=== PATIENT | female | born 1965 | race Caucasian/White ===

== ENCOUNTER 2019-01-02 18:28 | Emergency (ER) | payer SELFPAY ==
[2019-01-02 18:46] VITALS: O2SAT 100
[2019-01-02] MEDS ORDERED: Sodium Chloride 0.9% 1,000 ML IV ONE (20:39)
--- NOTE | 2019-01-02 20:45 | C.PDOC ---
History Of Present Illness 54 y/o female, with history of hypertension, comes in to ED for an evaluation. Patient reports having fever, generalized weakness, bodyaches, mild sore throat, and cough. Patient was on a layover traveling from [place] to [place]. Denies SOB, chest pain, nausea, vomiting, abdominal pain, or other complaints. Time Seen by Provider: 01/02/19 20:33 Chief Complaint (Nursing): Weakness/Neurological Deficit History Per: Patient History/Exam Limitations: no limitations Onset/Duration Of Symptoms: Days Current Symptoms Are (Timing): Still Present Past Medical History Reviewed: Historical Data, Nursing Documentation, Vital Signs Vital Signs: Last Vital Signs Temp 100.8 F H 01/02/19 18:41 Pulse 107 H 01/02/19 18:41 Resp 18 01/02/19 18:41 BP 127/89 01/02/19 18:41 Pulse Ox 100 01/02/19 18:41 Primary Care Provider: FAMILY PROVIDER,NO - Medical History PMH: HTN Surgical History: Tonsillectomy Family History: States: No Known Family Hx - Social History Hx Alcohol Use: No Hx Substance Use: No Review Of Systems Except As Marked, All Systems Reviewed And Found Negative. Constitutional: Positive for: Fever, Weakness, Other (bodyache). Negative for: Chills ENT: Positive for: Throat Pain (sore throat) Cardiovascular: Negative for: Chest Pain Respiratory: Positive for: Cough. Negative for: Shortness of Breath Gastrointestinal: Negative for: Nausea, Vomiting, Abdominal Pain Neurological: Negative for: Headache, Dizziness Physical Exam - Physical Exam Appears: Non-toxic, No Acute Distress Skin: Warm, Dry Head: Atraumatic, Normacephalic Eye(s): bilateral: PERRL Oral Mucosa: Moist Throat: Erythema (mild pharynx erythema), No Exudate Neck: Supple Cardiovascular: Rhythm Regular, No Murmur Respiratory: Normal Breath Sounds, No Rales, No Rhonchi, No Wheezing Gastrointestinal/Abdominal: Soft, No Tenderness Extremity: Bilateral: Atraumatic, Normal ROM Neurological/Psych: Oriented x3, Normal Speech ED Course And Treatment - Laboratory Results Result Diagrams: 01/02/19 20:56 01/02/19 20:56 O2 Sat by Pulse Oximetry: 100 (RA) Pulse Ox Interpretation: Normal Medical Decision Making Medical Decision Making: suspect viral syndromne will hydrate check labs image and reasses Plan: --Labs --Urine preg --UA --IV fluids --Tylenol cxr neg as read by me. labs mild leukocytosis. fever tachycardia resolved. pti nad on phone. suspect viral syndrome. nomral vitals neuor intact nomenginmus abd soft no ttp. stable for d.c mild anemia, pt reporst heavy vb. Disposition - Disposition Referrals: [facility] [Outside] [facility] [Outside] Disposition: HOME/ ROUTINE Disposition Time: 07:00 Condition: STABLE Additional Instructions: return to any er with worseinng. please follow up in clinc. Prescriptions: Acetaminophen [Tylenol] 650 mg PO Q4 PRN #20 capsule PRN Reason: Pain, Mild (1-3) Instructions: Viral Syndrome (DC) Forms: [employer] (Yakut) - Clinical Impression Clinical Impression: Viral syndrome - Scribe Statement The provider has reviewed the documentation as recorded by the Natali Walters Provider Attestation: All medical record entries made by the Adrianibmk were at my direction and personall y dictated by me. I have reviewed the chart and agree that the record accurately reflects my personal performance of the history, physical exam, medical decision making, and the department course for this patient. I have also personally directed, reviewed, and agree with the discharge instructions and disposition.
[2019-01-02 21:01] LABS: BASO # 0.1 K/uL (0.0-0.2); BASO % 0.6 % (0.0-2.0); HEMOGLOBIN 10.2 g/dL (11.0-16.0); LYMPH # 2.4 K/uL (1.0-4.3); LYMPH % 17.3 % (20.0-40.0); MEAN CELL VOLUME 67.8 fL (81.0-99.0); MEAN CORPUSCULAR HEMOGLOBIN 21.3 pg (27.0-31.0); MEAN CORPUSCULAR HGB CONC 31.4 g/dL (33.0-37.0); MEAN PLATELET VOLUME 7.8 fL (7.2-11.7); MONO # 0.6 K/uL (0.0-0.8); NEUT # 10.7 K/uL (1.8-7.0); NEUT % 78.1 % (50.0-75.0); RBC 4.77 Mil/uL (3.80-5.20); RED CELL DISTRIBUTION WIDTH 18.9 % (11.5-14.5); WHITE BLOOD COUNT 13.7 K/uL (4.8-10.8)
[2019-01-02 21:13] LABS: INR 1.2; PROTHROMBIN TIME 13.5 SECONDS (9.7-12.2)
[2019-01-02 21:16] LABS: ALB/GLOB RATIO 1.1 (1.0-2.1); ALBUMIN 4.6 g/dL (3.5-5.0); ALT/SGPT 17 U/L (9-52); AST/SGOT 29 U/L (14-36); BLOOD UREA NITROGEN 11 mg/dL (7-17); CALCIUM 9.3 mg/dl (8.6-10.4); GFR NON-AFRICAN AMERICAN > 60
[2019-01-02 22:34] LABS: SQUAMOUS EPITHIAL 5 /hpf (0-5); URINE BACTERIA OCC (<OCC); URINE BILIRUBIN NEGATIVE (NEGATIVE); URINE BLOOD 3+ (NEGATIVE); URINE CLARITY Hazy (Clear); URINE COLOR Yellow (YELLOW); URINE GLUCOSE (UA) NORMAL (Normal); URINE LEUKOCYTE ESTERASE NEG Leu/uL (Negative); URINE PROTEIN 1+ mg/dL (NEGATIVE); URINE UROBILINOGEN NORMAL mg/dL (0.2-1.0)
[2019-01-02 22:46] LABS: HCG,QUALITATIVE URINE NEGATIVE (NEGATIVE)
[2019-01-02 22:49] LABS: INFLUENZA A B NEGATIVE FOR FLU A/B (NEGATIVE)
[2019-01-03 00:23] VITALS: BP 142/87; PULSE 87; RESP 20; TEMP 98.7
--- NOTE | 2019-01-03 11:54 | RAD ---
HISTORY: fever COMPARISON: None available. TECHNIQUE: Chest PA and lateral, 2 views FINDINGS: LUNGS: No focal consolidation. Please note that chest x-ray has limited sensitivity for the detection of pulmonary masses. PLEURA: No significant pleural effusion identified. No definite pneumothorax . CARDIOVASCULAR: The cardiomediastinal silhouette appears within normal limits of size. No atherosclerotic calcification present. OSSEOUS STRUCTURES: Mild degenerative changes. VISUALIZED UPPER ABDOMEN: Unremarkable. OTHER FINDINGS: None. IMPRESSION: No focal consolidation.
--- NOTE | 2019-01-05 03:25 | CARD ---
APPROVED REPORT Date of service: 01/02/2019 EKG Measurement Heart [id number] <Conclusion> Sinus tachycardia Otherwise normal ECG
== END 2019-01-03 00:23 | disposition home or self-care (01) ==
LOC: C.ER 18:28
DX: B34.9 Viral infection, unspecified (principal); I10 Essential (primary) hypertension
CPT/HCPCS: 71046; 80053; 81001; 82948; 84703; 85025; 85610; 85730; 87070; 87430; 87804; 96360; 99284; J7030

== ENCOUNTER 2019-01-03 21:16 | Emergency (ER) | payer SELFPAY ==
[2019-01-03 21:43] VITALS: BP 130/68; PULSE 109; RESP 20; TEMP 98.9; O2SAT 100
[2019-01-03] MEDS ORDERED: Sodium Chloride 0.9% 1,000 ML IV ONE (21:57)
--- NOTE | 2019-01-03 21:57 | C.PDOC ---
History Of Present Illness Patient c/o increasing abdominal pain. Patient was seen yesterday in the ED for same. Patient reports recent travel from [place]. Patient had negative work up yesterday however still c/o pain. Patient saw a APPLIED BEHAVIOR SPECIALIST today and was told she had pelvic inflammation. Patient did not have an US done. Patient denies fever, chills, nausea, vomit, diarrhea. Time Seen by Provider: 01/03/19 21:56 Chief Complaint (Nursing): Abdominal Pain History Per: Patient History/Exam Limitations: no limitations Onset/Duration Of Symptoms: Days Current Symptoms Are (Timing): Worse Location Of Pain/Discomfort: RLQ Quality Of Discomfort: "Pain" Associated Symptoms: denies: Nausea, Vomiting, Diarrhea, Urinary Symptoms Recent travel outside of the [place]: Yes ([place]) Additional History Per: Patient Abnormal Vaginal Bleeding: No Past Medical History Reviewed: Historical Data, Nursing Documentation, Vital Signs Vital Signs: Last Vital Signs Temp 98.9 F 01/03/19 21:39 Pulse 109 H 01/03/19 21:39 Resp 20 01/03/19 21:39 BP 130/68 01/03/19 21:39 Pulse Ox 100 01/03/19 21:39 Primary Care Provider: FAMILY PROVIDER,NO - Medical History PMH: HTN Surgical History: Tonsillectomy Family History: States: Unknown Family Hx - Social History Hx Alcohol Use: No Hx Substance Use: No - Immunization History Hx Tetanus Toxoid Vaccination: No Hx Influenza Vaccination: No Hx Pneumococcal Vaccination: No Review Of Systems Constitutional: Negative for: Fever, Chills Cardiovascular: Negative for: Chest Pain Respiratory: Negative for: Shortness of Breath Gastrointestinal: Positive for: Abdominal Pain. Negative for: Nausea, Vomiting, Diarrhea Genitourinary: Positive for: Pelvic Pain Skin: Negative for: Rash Neurological: Negative for: Weakness, Numbness, Headache Physical Exam - Physical Exam Appears: Non-toxic, No Acute Distress Skin: Warm, Dry Head: Normacephalic Eye(s): bilateral: Normal Inspection Oral Mucosa: Moist Neck: Supple Chest: Symmetrical Cardiovascular: Rhythm Regular Respiratory: No Rales, No Rhonchi, No Wheezing Gastrointestinal/Abdominal: Soft, Tenderness (RLQ and suprapubic), Distention, No Guarding, No Rebound, Other (tympanic to percussion) Back: No CVA Tenderness Extremity: Normal ROM, No Tenderness, No Swelling Neurological/Psych: Oriented x3, Normal Speech, Normal Cognition Gait: Steady ED Course And Treatment - Laboratory Results Result Diagrams: 01/04/19 00:01 01/03/19 09:18 O2 Sat by Pulse Oximetry: 100 (ON RA) Pulse Ox Interpretation: Normal Disposition Counseled Patient/Family Regarding: Studies Performed, Diagnosis, Need For Followup, Rx Given - Disposition Disposition: HOME/ ROUTINE Disposition Time: 21:56 Condition: FAIR Additional Instructions: Please return if symptoms recur Instructions: Acute Abdomen (Belly Pain), Adult (DC), Constipation, Adult (DC), Gallstones (DC) Forms: [employer] (Mongolian) - Clinical Impression Clinical Impression: Abdominal pain, Constipation, Gall stone - Scribe Statement The provider has reviewed the documentation as recorded by the Scribe Rohan Fischer All medical record entries made by the Scribe were at my direction and personally dictated by me. I have reviewed the chart and agree that the record accurately reflects my personal performance of the history, physical exam, medical decision making, and the department course for this patient. I have also personally directed, reviewed, and agree with the discharge instructions and disposition.
[2019-01-03] MEDS ORDERED: Sodium Chloride 0.9% 1,000 ML ONE (22:07)
[2019-01-04] MEDS ORDERED: Piperacillin/Tazobact 3.375 gm 100 ML IVPB ONE (00:03)
[2019-01-04] MEDS ORDERED: Iodixanol 320 MG/ML 100 ML BOTTLE IV ONE ×2 (00:41→00:57)
[2019-01-04] MEDS ORDERED: metroNIDAZOLE IV 500 mg/100 ml 500 MG/100 ML BAG ONE (02:42)
[2019-01-04 02:58] LABS: BASO # 0.1 K/uL (0.0-0.2); BASO % 0.6 % (0.0-2.0); EOS # 0.1 K/uL (0.0-0.7); EOS % 0.4 % (0.0-4.0); HEMOGLOBIN 9.4 g/dL (11.0-16.0); LYMPH # 2.4 K/uL (1.0-4.3); LYMPH % 15.2 % (20.0-40.0); MEAN CELL VOLUME 67.1 fL (81.0-99.0); MEAN CORPUSCULAR HEMOGLOBIN 20.9 pg (27.0-31.0); MEAN CORPUSCULAR HGB CONC 31.1 g/dL (33.0-37.0); MEAN PLATELET VOLUME 7.7 fL (7.2-11.7); MONO % 5.9 % (0.0-10.0); NEUT # 12.5 K/uL (1.8-7.0); NEUT % 77.9 % (50.0-75.0); RBC 4.53 Mil/uL (3.80-5.20); WHITE BLOOD COUNT 16.1 K/uL (4.8-10.8)
--- NOTE | 2019-01-04 07:29 | CT ---
CT abdomen and pelvis HISTORY: Right lower quadrant abdominal pain. COMPARISON: None available. Technique: Multiple contiguous axial images were performed through the abdomen and pelvis with the use of intravenous contrast. Subsequently, sagittal and coronal reformatted images were obtained. This CT exam was performed using one or more of the following dose reduction techniques: Automated exposure control, adjustment of the mA and/or kV according to patient size, and/or use of iterative reconstruction technique. Findings: Lung bases are clear. No pleural or pericardial effusion. Few punctate scattered hypodensities in the liver, too small to adequately characterize. Distended gallbladder with large calculi measuring up to 2.3 centimeters. Correlation with right upper quadrant abdominal ultrasound may be helpful if clinically indicated. Spleen is preserved. Adrenal glands are preserved. Pancreas is preserved. Small hiatal hernia. Few mildly distended loops of small bowel in the left upper abdomen. Right kidney: Midpole right renal 1.2 centimeter low-attenuation lesion demonstrating a Hounsfield unit attenuation of 18, indeterminate. Left Kidney: Grossly preserved. Urinary bladder is preserved. Bulky heterogeneous multi fibroid uterus with large fibroid lesions noted. For example, a prominent fibroid lesion measures 8.6 x 6.5 centimeters with associated prominent mucoid degeneration. Suggestion of prominent nabothian cysts noted at the level of the cervix. Heterogeneous and somewhat prominent left adnexa. Correlation with pelvic ultrasound or pelvic MRI may be helpful if clinically indicated. Trace free fluid within the pelvic cul-de-sac. Fecal retention in the colon. Appendix is within normal limits. Few shotty para-aortic and inguinal lymph nodes. Mild atherosclerotic calcification and plaque within the aorta. Small fat containing umbilical hernia. Degenerative changes in the spine. Impression: 1. Bulky heterogeneous multi fibroid uterus with large fibroid lesions noted. For example, a prominent fibroid lesion measures 8.6 x 6.5 centimeters with associated prominent mucoid degeneration. Suggestion of prominent nabothian cysts noted at the level of the cervix. Heterogeneous and somewhat prominent left adnexa. Correlation with pelvic ultrasound or pelvic MRI may be helpful if clinically indicated. 2. Trace free fluid within the pelvic cul-de-sac. 3. Distended gallbladder with large calculi measuring up to 2.3 centimeters. Correlation with right upper quadrant abdominal ultrasound may be helpful if clinically indicated. 4. Small hiatal hernia. 5. Few mildly distended loops of small bowel in the left upper abdomen. 6. Midpole right renal 1.2 centimeter low-attenuation lesion demonstrating a Hounsfield unit attenuation of 18, indeterminate. 7. Small fat containing umbilical hernia. 8. Fecal retention in the colon. A preliminary report was generated at 2:13 a.m. on 01/04/[address] Aleshia Gil from [employer].
[2019-01-04 09:58] LABS: ALB/GLOB RATIO 1.1 (1.0-2.1); ALBUMIN 4.4 g/dL (3.5-5.0); AST/SGOT 63 U/L (14-36); BLOOD UREA NITROGEN 9 mg/dL (7-17); CALCIUM 9.6 mg/dl (8.6-10.4); GFR NON-AFRICAN AMERICAN > 60
[2019-01-04 10:09] LABS: ALT/SGPT 31 U/L (9-52)
[2019-01-04 11:28] LABS: URINE CLARITY Hazy (Clear); URINE COLOR YELLOW (YELLOW); URINE GLUCOSE (UA) 2+ mg/dL (Normal)
[2019-01-04 11:29] LABS: URINE BILIRUBIN NEGATIVE (NEGATIVE); URINE BLOOD 2+ (NEGATIVE); URINE LEUKOCYTE ESTERASE NEGATIVE Leu/uL (Negative); URINE PROTEIN NEGATIVE (NEGATIVE); URINE UROBILINOGEN Normal mg/dL (0.2-1.0)
[2019-01-04 11:30] LABS: SQUAMOUS EPITHIAL < 1 /hpf (0-5); URINE BACTERIA RARE (<OCC)
== END 2019-01-04 02:45 | disposition home or self-care (01) ==
LOC: C.ER 21:16
DX: K59.00 Constipation, unspecified (principal); K80.20 Calculus of gallbladder without cholecystitis without obstruction; R10.31 Right lower quadrant pain
CPT/HCPCS: 74177; 80053; 81001; 83735; 85025; 87040; 96361; 96374; 99283; J1885; J7030; Q9967